=== PATIENT | female | born 1940 | race Caucasian/White ===

== ENCOUNTER 2017-04-10 21:54 | Inpatient (IN) | payer MEDICARE, OTHER ==
[~2017-04-10] VITALS: Ht 170.2 cm; Wt 63.2 kg
[2017-04-11] MEDS ORDERED: AVEENO ANTI-IT118 ML TP (02:16)
[2017-04-11] MEDS ORDERED: PRAVASTATIN SOD40 MG PO (02:16)
[2017-04-11] MEDS ORDERED: KLONOPIN TAB 00.5 MG PO (02:17)
[2017-04-11] MEDS ORDERED: XARELTO15 MG PO (02:17)
[2017-04-11] MEDS ORDERED: NORCO 10-325 T1 EACH PO (02:17)
[2017-04-11] MEDS ORDERED: PRILOSEC OTC20 MG PO (02:18)
[2017-04-11] MEDS ORDERED: BETHANECHOL CHL25 MG PO (02:19)
[2017-04-11] MEDS ORDERED: CALTRATE 600 +1 EAC1 PO (02:19)
[2017-04-11] MEDS ORDERED: LEVEMIR100 UNIT/1 SQ (02:20)
[2017-04-11] MEDS ORDERED: BACTRIM DS TAB1 EACH PO (02:21)
[2017-04-11] MEDS ORDERED: NOVOLOG100 UNIT/1 SQ (02:21)
[2017-04-11] MEDS ORDERED: ZYRTEC10 MG PO (02:22)
[2017-04-11] MEDS ORDERED: VISTARIL25 MG PO (02:22)
[2017-04-11 04:51] LABS: HEMOGLOBIN 12.7 gm/dl (12.3-15.3); RED BLOOD COUNT 4.22 M/UL (4.00-5.10)
[2017-04-12 03:40] LABS: HEMOGLOBIN 12.9 gm/dl (12.3-15.3); RED BLOOD COUNT 4.33 M/UL (4.00-5.10); WHITE BLOOD COUNT 7.8 K/UL (4.5-11.0)
[2017-04-13 03:11] LABS: HEMOGLOBIN 11.4 gm/dl (12.3-15.3); RED BLOOD COUNT 3.87 M/UL (4.00-5.10); WHITE BLOOD COUNT 6.9 K/UL (4.5-11.0)
[2017-04-14 03:47] LABS: HEMOGLOBIN 12.2 gm/dl (12.3-15.3); RED BLOOD COUNT 4.09 M/UL (4.00-5.10)
[2017-04-14 03:51] LABS: WHITE BLOOD COUNT 9.3 K/UL (4.5-11.0)
[2017-04-15] MEDS ORDERED: KEPPRA500 MG PO (14:37)
[2017-04-15] MEDS ORDERED: GLUCERNA 1.21000 ML PO (14:41)
== END 2017-04-15 17:25 | disposition home or self-care (01) | DRG 100 ==
LOC: M/S 04-11 00:12 → PROG CARE 04-11 00:12
PROVIDERS: Emergency Medicine; Internal Medicine; ADMIT Internal Medicine
DX: R56.9 Unspecified convulsions (principal); R53.2 Functional quadriplegia; N17.9 Acute kidney failure, unspecified; E44.0 Moderate protein-calorie malnutrition; R13.10 Dysphagia, unspecified; N18.3 Chronic kidney disease, stage 3 (moderate); L89.152 Pressure ulcer of sacral region, stage 2; I25.10 Atherosclerotic heart disease of native coronary artery without angina pectoris; C06.9 Malignant neoplasm of mouth, unspecified; I12.9 Hypertensive chronic kidney disease with stage 1 through stage 4 chronic kidney disease, or unspecified chronic kidney disease; E11.22 Type 2 diabetes mellitus with diabetic chronic kidney disease; E78.5 Hyperlipidemia, unspecified; E11.65 Type 2 diabetes mellitus with hyperglycemia; Z66 Do not resuscitate; K21.9 Gastro-esophageal reflux disease without esophagitis; C76.0 Malignant neoplasm of head, face and neck; Z93.1 Gastrostomy status; Z79.4 Long term (current) use of insulin; Z95.5 Presence of coronary angioplasty implant and graft; Z79.01 Long term (current) use of anticoagulants; Z82.49 Family history of ischemic heart disease and other diseases of the circulatory system; Z79.891 Long term (current) use of opiate analgesic; Z79.899 Other long term (current) drug therapy
CPT/HCPCS: ECHO; 36415; 70450; 70551; 71010; 80048; 80053; 81001; 82550; 82553; 82962; 83735; 83880; 84100; 84439; 84443; 84484; 85025; 85027; 85610; 92526; 92610; 93005; 93306; C9113; J1953; J2270; J7030; J7050; Q0177